=== PATIENT | male | born 1970 | race Caucasian/White ===

== ENCOUNTER 2020-12-02 06:59 | Day surgery (SDC) | payer OTHER ==
[2020-11-24 13:56] VITALS: BMI 51.6
[2020-12-02] MEDS ORDERED: EPINEPHrine 1:1,000 1 MG/1 ML - 30ML VIAL (INJECTION) ONE (07:21)
[2020-12-02] MEDS ORDERED: DEXAMETHASONE SOD PHOSPHATE 10 MG/1 ML VIAL ONE (08:40)
[2020-12-02] MEDS ORDERED: ROPIVACAINE HCL 0.5% 30ML VIAL ONE (08:41)
[2020-12-02] MEDS ORDERED: MIDAZOLAM HCL 2 MG/2 ML SINGLE DOSE VIAL ONE (08:43)
[2020-12-02] MEDS ORDERED: oxyCODONE HCL 5 MG TABLET PO ONE (09:12)
[2020-12-02] MEDS ORDERED: ACETAMINOPHEN 500 MG TABLET (FP) PO ONE (09:13)
[2020-12-02] MEDS ORDERED: PROPOFOL 20 ML ONE ×4 (09:41→10:17)
[2020-12-02] MEDS ORDERED: ceFAZolin SODIUM 1 GM VIAL ONE ×2 (09:45→09:48)
[2020-12-02] MEDS ORDERED: DEXAMETHASONE SOD PHOSPHATE 4 MG/1 ML VIAL ONE (09:51)
[2020-12-02] MEDS ORDERED: ONDANSETRON 4 MG/2 ML VIAL ONE (09:51)
[2020-12-02 12:28] VITALS: BP 138/80; PULSE 72; TEMP 97.7
== END 2020-12-02 12:28 | disposition home or self-care (01) ==
LOC: FASU 06:59
PROVIDERS: ATTEND Orthopaedic Surgery
PROC: 0RNJ4ZZ Release Right Shoulder Joint, Percutaneous Endoscopic Approach (ICD-10-PCS; 2020-12-02)
PROC: 0MM14ZZ Reattachment of Right Shoulder Bursa and Ligament, Percutaneous Endoscopic Approach (ICD-10-PCS; 2020-12-02)
PROC: 0PB94ZZ Excision of Right Clavicle, Percutaneous Endoscopic Approach (ICD-10-PCS; 2020-12-02)
PROC: 0RNJ4ZZ Release Right Shoulder Joint, Percutaneous Endoscopic Approach (ICD-10-PCS; principal; 2020-12-02 10:00)
DX: M75.01 Adhesive capsulitis of right shoulder (principal); M75.41 Impingement syndrome of right shoulder; M19.011 Primary osteoarthritis, right shoulder; S43.431A Superior glenoid labrum lesion of right shoulder, initial encounter; X58.XXXA Exposure to other specified factors, initial encounter; Y93.9 Activity, unspecified; Y92.9 Unspecified place or not applicable
CPT/HCPCS: 82962; 88304-TC; 94760; J1100

== ENCOUNTER 2022-11-30 06:09 | Day surgery (SDC) | payer OTHER ==
[2022-11-27 12:05] VITALS: BMI 43.0
[2022-11-30] MEDS ORDERED: BUPIVACAINE HCL/PF 2.5 MG/ML - 30 ML VIAL IJ ONE (07:17)
[2022-11-30] MEDS ORDERED: EPINEPHrine 1:1,000 1,000 MCG/ML ML ONE (07:18)
[2022-11-30] MEDS ORDERED: LIDOCAINE HCL/PF 2% SDV 5ML VIAL ONE (07:23)
[2022-11-30] MEDS ORDERED: GLYCOPYRROLATE 0.2 MG/1 ML VIAL ONE (07:23)
[2022-11-30] MEDS ORDERED: DEXAMETHASONE SOD PHOSPHATE 4 MG/1 ML VIAL ONE (07:23)
[2022-11-30] MEDS ORDERED: ONDANSETRON 4 MG/2 ML VIAL ONE (07:23)
[2022-11-30] MEDS ORDERED: ceFAZolin SODIUM 1 GM VIAL ONE ×2 (07:24)
[2022-11-30] MEDS ORDERED: MIDAZOLAM HCL 2 MG/2 ML SINGLE DOSE VIAL ONE (07:24)
[2022-11-30] MEDS ORDERED: PROPOFOL 40 ML ONE (07:24)
[2022-11-30] MEDS ORDERED: FENTANYL CITRATE/PF 50 MCG/ML VIAL ONE (09:31)
[2022-11-30] MEDS ORDERED: ONDANSETRON 4 MG/2 ML VIAL IVPUSH PRN (09:34)
[2022-11-30] MEDS ORDERED: oxyCODONE HCL 5 MG TABLET PO PRN (09:34)
[2022-11-30] MEDS ORDERED: ACETAMINOPHEN INJECTION 100 ML IVPB ONE (09:37)
[2022-11-30] MEDS ORDERED: LACTATED RINGERS SOLUTION 1,000 ML IV SCH (09:45)
[2022-11-30] MEDS ORDERED: ACETAMINOPHEN 1000 MG/100 ML BAG IVPB ONE (10:08)
[2022-11-30 10:27] VITALS: TEMP 97.4
[2022-11-30 10:29] VITALS: BP 126/70; PULSE 76; RESP 18
== END 2022-11-30 10:40 | disposition home or self-care (01) ==
LOC: FASU 06:09
PROVIDERS: ATTEND Orthopaedic Surgery
PROC: 0SBD4ZZ Excision of Left Knee Joint, Percutaneous Endoscopic Approach (ICD-10-PCS; 2022-11-30)
PROC: 0SBD4ZZ Excision of Left Knee Joint, Percutaneous Endoscopic Approach (ICD-10-PCS; principal; 2022-11-30 08:34)
DX: S83.242A Other tear of medial meniscus, current injury, left knee, initial encounter (principal); S83.282A Other tear of lateral meniscus, current injury, left knee, initial encounter; S83.8X2A Sprain of other specified parts of left knee, initial encounter; M65.862 Other synovitis and tenosynovitis, left lower leg; X58.XXXA Exposure to other specified factors, initial encounter; Y93.9 Activity, unspecified; Y92.9 Unspecified place or not applicable
CPT/HCPCS: 82962; 94760